=== PATIENT | male | born 1945 | race Caucasian/White ===

== ENCOUNTER 2017-11-23 11:52 | Inpatient (IN) ==
[2017-11-23] MEDS ORDERED: Aspirin Enteric Coated 81 MG Tablet PO SCH (12:15)
[2017-11-23] MEDS ORDERED: Nitroglycerin 0.4 MG TAB.SUBL SL PRN (12:15)
[2017-11-23] MEDS ORDERED: D5% in Water 1,000 ML IVC PRN (12:24)
[2017-11-23] MEDS ORDERED: Dextrose Gel 15 GM PO PRN ×2 (12:24)
[2017-11-23] MEDS ORDERED: *HR* Dextrose 50 % in Water (Syg) 50 ML SYRINGE IVP PRN (12:24)
[2017-11-23] MEDS: Insulin LISPRO 300 UNITS/3 ML VIAL SQ SCH ×3 (13:50→21:17)
[2017-11-23] MEDS: Albuterol 2.5 MG/3 ML NEBULIZER IH PRN ×5 (13:51→20:59)
[2017-11-23] MEDS ORDERED: Famotidine 20 MG TABLET PO SCH (21:00)
[2017-11-24] MEDS: Ascorbic Acid 500 MG TABLET PO SCH (05:20)
[2017-11-24] MEDS: Isosorbide MONOnitrate (24 HR) 60 MG TAB.ER.24H PO SCH (08:29)
[2017-11-24] MEDS: Spironolactone 25 MG TABLET PO SCH (08:31)
[2017-11-24] MEDS: Insulin LISPRO 300 UNITS/3 ML VIAL SQ SCH ×4 (08:39→21:38)
[2017-11-24] MEDS ORDERED: amLODIPine 5 MG TABLET PO SCH (09:00)
[2017-11-24] MEDS ORDERED: Furosemide 20 MG TABLET PO SCH (09:00)
[2017-11-24] MEDS: Tiotropium 18 MCG inhalation IH SCH (10:39)
[2017-11-24] MEDS: Albuterol 2.5 MG/3 ML NEBULIZER IH PRN (10:49)
--- NOTE | 2017-11-24 14:26 | Internal Med Progress Note ---
Date of Encounter: 11/24/17 Time of Encounter: 14:15 - Assessment and plan (1) Elevated brain natriuretic peptide (BNP) level Current Visit: No Status: Acute Assessment and plan: We will change from Lasix to Bumex. Continue Coreg and Cozaar and Imdur. (2) CKD (chronic kidney disease) stage 3, GFR 30-59 ml/min Current Visit: No Status: Chronic Assessment and plan: Monitor renal indices periodically. (3) Anemia Current Visit: No Status: Chronic Assessment and plan: Continue ferrous sulfate with vitamin C. We will discontinue H2 blockers and PPI. Qualifiers: Anemia type: unspecified type Qualified Code(s): D64.9 - Anemia, unspecified - Subjective Interval history: He was hospitalized in acute care November 19- after presenting with influenza A. He completed a course of Tamiflu. Lasix and Aldactone doses were reduced. He was started on Imdur. Cozaar and Coreg were continued. He had therapy intervention and progressed satisfactorily but it was felt that he would benefit from swing bed stay for ongoing therapy prior to independent living at home. He has no complaints today. - Constitutional Vitals: Temp Pulse Resp BP Pulse Ox 98.1 F 73 18 176/64 93 11/23/17 18:30 11/23/17 18:30 11/24/17 10:39 11/23/17 18:30 11/24/17 10:39 Exam: He is sitting in a chair resting comfortably. Affect is bright and cheerful. Extremities show 1-2+ edema of the lower anterior shins bilaterally. His speech is appropriate and there is no confusion. He does report occasional visual hallucinations. I reviewed his medications and lab results. Consult Discharge Plan - Plan Referrals: Leo Marcelo DO [Primary Care Provider] - 1 week
[2017-11-24] MEDS: Bumetanide 1 MG TABLET PO SCH (16:45)
[2017-11-24] MEDS: INSULIN REGULAR HUMAN 1 UNIT SQ SCH (18:23)
[2017-11-24] MEDS: INSULIN PUMP SQ SCH (18:23)
[2017-11-24] MEDS: *HR* OxyCODONE Immed Rel 5 MG TABLET PO PRN (21:35)
[2017-11-25] MEDS: *HR* OxyCODONE Immed Rel 5 MG TABLET PO PRN (03:20)
[2017-11-25] MEDS: Ascorbic Acid 500 MG TABLET PO SCH (06:23)
[2017-11-25] MEDS: Spironolactone 25 MG TABLET PO SCH (10:03)
[2017-11-25] MEDS: Isosorbide MONOnitrate (24 HR) 60 MG TAB.ER.24H PO SCH (10:04)
[2017-11-25] MEDS: Insulin LISPRO 300 UNITS/3 ML VIAL SQ SCH ×4 (10:04→21:29)
[2017-11-25] MEDS: Bumetanide 1 MG TABLET PO SCH (10:04)
[2017-11-25] MEDS: Tiotropium 18 MCG inhalation IH SCH (11:52)
[2017-11-25] MEDS: INSULIN REGULAR HUMAN 1 UNIT SQ SCH (15:15)
[2017-11-25] MEDS: INSULIN PUMP SQ SCH (15:15)
[2017-11-26] MEDS: Ascorbic Acid 500 MG TABLET PO SCH (06:25)
[2017-11-26] MEDS: Insulin LISPRO 300 UNITS/3 ML VIAL SQ SCH ×4 (07:50→21:54)
[2017-11-26] MEDS: Albuterol 2.5 MG/3 ML NEBULIZER IH PRN ×3 (08:51→22:24)
[2017-11-26] MEDS: Tiotropium 18 MCG inhalation IH SCH (08:54)
[2017-11-26] MEDS: Isosorbide MONOnitrate (24 HR) 60 MG TAB.ER.24H PO SCH (09:13)
[2017-11-26] MEDS: Spironolactone 25 MG TABLET PO SCH (09:13)
[2017-11-26] MEDS: Bumetanide 1 MG TABLET PO SCH (09:13)
[2017-11-26] MEDS: INSULIN PUMP SQ SCH (09:15)
[2017-11-26] MEDS: INSULIN REGULAR HUMAN 1 UNIT SQ SCH (09:15)
[2017-11-27] MEDS: Ascorbic Acid 500 MG TABLET PO SCH (06:49)
[2017-11-27] MEDS: Insulin LISPRO 300 UNITS/3 ML VIAL SQ SCH ×4 (07:20→20:19)
[2017-11-27] MEDS: Albuterol 2.5 MG/3 ML NEBULIZER IH PRN ×2 (09:00→14:45)
[2017-11-27] MEDS: Tiotropium 18 MCG inhalation IH SCH (09:04)
[2017-11-27] MEDS: Isosorbide MONOnitrate (24 HR) 30 MG TAB.ER.24H PO SCH (10:29)
[2017-11-27] MEDS: INSULIN PUMP SQ SCH (10:30)
[2017-11-27] MEDS: INSULIN REGULAR HUMAN 1 UNIT SQ SCH (10:30)
[2017-11-27] MEDS: Spironolactone 25 MG TABLET PO SCH (10:32)
[2017-11-27] MEDS: Bumetanide 1 MG TABLET PO SCH (10:33)
--- NOTE | 2017-11-27 17:16 | Internal Med Progress Note ---
Date of Encounter: 11/27/17 Time of Encounter: 17:08 - Assessment and plan (1) Elevated brain natriuretic peptide (BNP) level Current Visit: No Status: Acute Assessment and plan: November 24. We will change from Lasix to Bumex. Continue Coreg and Cozaar and Imdur. November 27. Continue present regimen. (2) CKD (chronic kidney disease) stage 3, GFR 30-59 ml/min Current Visit: No Status: Chronic Assessment and plan: November 24. Monitor renal indices periodically. (3) Anemia Current Visit: No Status: Chronic Assessment and plan: November 24. Continue ferrous sulfate with vitamin C. We will discontinue H2 blockers and PPI. November 27. Recheck labs in a.m. Qualifiers: Anemia type: unspecified type Qualified Code(s): D64.9 - Anemia, unspecified - Subjective Interval history: November 24. He was hospitalized in acute care November 19- after presenting with influenza A. He completed a course of Tamiflu. Lasix and Aldactone doses were reduced. He was started on Imdur. Cozaar and Coreg were continued. He had therapy intervention and progressed satisfactorily but it was felt that he would benefit from swing bed stay for ongoing therapy prior to independent living at home. He has no complaints today. November 27. He has no new complaints and states he feels better. - Constitutional Vitals: Temp Pulse Resp BP Pulse Ox 99.3 F 67 16 121/82 95 11/27/17 16:09 11/27/17 16:09 11/27/17 16:09 11/27/17 16:09 11/27/17 16:09 Exam: He is sitting on the side of bed resting comfortably. He denies any further hallucinations. Extremities show trace to 1+ edema in the lower anterior shins and dorsum of feet bilaterally. His affect is bright and cheerful. He does not appear dyspneic. He is wearing oxygen by nasal cannula. Reviewed his vital signs and medications. Consult Discharge Plan - Plan Referrals: Leo Marcelo DO [Primary Care Provider] - 1 week
[2017-11-28] MEDS: Isosorbide MONOnitrate (24 HR) 60 MG TAB.ER.24H PO SCH (04:35)
[2017-11-28 05:33] LABS: Basophils % 0.2 %; Eosinophils # 0.1 K/mcL (0.0-0.6); Eosinophils % 0.8 %; Hematocrit 27.9 % (37.5-50.1); Hemoglobin 9.2 g/dL (12.9-16.9); Immature Granulocytes % 2.5 % (0-4); Lymphocytes % 7.2 %; Mean Corpuscular Hemoglobin 28.8 pg (28.0-33.3); Mean Corpuscular Volume 87.2 fL (83.0-100.0); Mean Platelet Volume 10.2 fL (9.4-12.4); Monocytes # 0.9 K/mcL (0.0-1.3); Platelet Count 291 K/mcL (140-400); Red Cell Distribution Width 13.2 % (11.5-14.5); Segmented Neutrophils % 82.3 %
[2017-11-28 05:53] LABS: Calcium 9.3 mg/dL (8.6-10.3); Magnesium 1.6 mg/dL (1.6-2.6); Potassium 4.5 mEq/L (3.5-5.1)
[2017-11-28] MEDS: Ascorbic Acid 500 MG TABLET PO SCH (06:33)
[2017-11-28] MEDS: Insulin LISPRO 300 UNITS/3 ML VIAL SQ SCH ×4 (07:49→20:42)
[2017-11-28] MEDS: Bumetanide 1 MG TABLET PO SCH (07:50)
[2017-11-28] MEDS: Spironolactone 25 MG TABLET PO SCH (07:50)
[2017-11-28] MEDS: Isosorbide MONOnitrate (24 HR) 30 MG TAB.ER.24H PO SCH (07:51)
[2017-11-28] MEDS: Tiotropium 18 MCG inhalation IH SCH (10:35)
[2017-11-28] MEDS: INSULIN REGULAR HUMAN 1 UNIT SQ SCH (12:10)
[2017-11-28] MEDS: INSULIN PUMP SQ SCH (12:10)
[2017-11-28] MEDS: Albuterol 2.5 MG/3 ML NEBULIZER IH PRN (19:34)
[2017-11-29] MEDS: Ascorbic Acid 500 MG TABLET PO SCH (05:35)
[2017-11-29] MEDS: Insulin LISPRO 300 UNITS/3 ML VIAL SQ SCH ×4 (07:28→19:59)
[2017-11-29] MEDS: Bumetanide 1 MG TABLET PO SCH (10:07)
[2017-11-29] MEDS: Isosorbide MONOnitrate (24 HR) 30 MG TAB.ER.24H PO SCH (10:07)
[2017-11-29] MEDS: INSULIN PUMP SQ SCH (10:08)
[2017-11-29] MEDS: INSULIN REGULAR HUMAN 1 UNIT SQ SCH (10:08)
[2017-11-29] MEDS: Spironolactone 25 MG TABLET PO SCH (10:08)
[2017-11-29] MEDS: Tiotropium 18 MCG inhalation IH SCH (11:29)
[2017-11-30] MEDS: Ascorbic Acid 500 MG TABLET PO SCH (06:20)
[2017-11-30 07:08] VITALS: BP 117/58
[2017-11-30] MEDS: Bumetanide 1 MG TABLET PO SCH (07:52)
[2017-11-30] MEDS: Spironolactone 25 MG TABLET PO SCH (07:52)
[2017-11-30] MEDS: Isosorbide MONOnitrate (24 HR) 30 MG TAB.ER.24H PO SCH (07:52)
[2017-11-30] MEDS: Insulin LISPRO 300 UNITS/3 ML VIAL SQ SCH ×2 (07:53→11:44)
[2017-11-30] MEDS: Tiotropium 18 MCG inhalation IH SCH (10:25)
--- NOTE | 2017-11-30 11:17 | Discharge Summary ---
Date of Encounter: 11/30/17 Time of Encounter: 11:10 - Discharge Diagnosis (1) Elevated brain natriuretic peptide (BNP) level Priority: Primary Status: Acute (2) CKD (chronic kidney disease) stage 3, GFR 30-59 ml/min Priority: Secondary Status: Chronic (3) Anemia Priority: Secondary Status: Chronic Qualifiers: Anemia type: unspecified type Qualified Code(s): D64.9 - Anemia, unspecified Hospital course: Mr. Torres is a 72 year old male who was hospitalized in acute care November 19 - after presenting with influenza A. He completed a course of Tamiflu. Lasix and Aldactone doses were reduced. He was started on Imdur. Cozaar and Coreg were continued. He had therapy intervention and progressed satisfactorily but it was felt that he would benefit from swing bed stay for ongoing therapy prior to independent living at home. He progressed satisfactorily in swing bed with physical therapy and occupational therapy interventions. Medications were adjusted and his breathing improved. He will continue with ferrous sulfate and vitamin C for anemia. H2 blockers and PPI were discontinued to improve absorption of the ferrous sulfate. He had no new complaints and on November 30 was stable for discharge home. He will follow with his PCP Dr. Leo Marcelo within 1 week. Room air oximetry will be checked on a 6 minute walk prior to discharge. - Time Spent with Patient Total time spent providing and/or coordinating discharge services: - Discharge Medications Prescriptions: Ascorbic Acid [Vitamin C] 500 mg PO DAILY #30 tablet Bumetanide [Bumex] 1 mg PO DAILY #30 tablet Doxazosin [Cardura] 2 mg PO HS #60 tablet Ferrous Sulfate 325 mg PO DAILY 30 Days #30 tablet Home Medications: Atorvastatin [Lipitor] 40 mg PO HS 06/11/15 [History] Calcitriol [Rocaltrol] 0.5 mcg PO DAILY 06/11/15 [History] Carvedilol [Coreg] 25 mg PO BID 06/11/15 [History] Clopidogrel [Plavix] 75 mg PO DAILY 06/11/15 [History] Insulin Regular Human [Humulin R] 1 unit SQ DAILY 06/11/15 [History] Nitroglycerin 0.4 mg SL Q5MIN 06/11/15 [History] Paricalcitol [Zemplar] 1 mcg PO DAILY 06/11/15 [History] Sertraline [Zoloft] 200 mg PO DAILY 06/11/15 [History] Isosorbide MONOnitrate (24 HR) [Imdur] 60 mg PO DAILY 08/11/16 [History] Losartan Potassium [Cozaar] 100 mg PO DAILY 08/11/16 [History] Oxycodone HCl 5 mg PO Q6H PRN 08/11/16 [History] Tiotropium [place] [Spiriva Respimat] 1 puff IH BID 08/11/16 [History] Aspirin Enteric Coated [Aspirin EC] 81 mg PO Q48H #0 11/23/17 [Rx] Spironolactone [Aldactone] 12.5 mg PO DAILY tablet 11/23/17 [Rx] Ascorbic Acid [Vitamin C] 500 mg PO DAILY #30 tablet 11/30/17 [Rx] Bumetanide [Bumex] 1 mg PO DAILY #30 tablet 11/30/17 [Rx] Doxazosin [Cardura] 2 mg PO HS #60 tablet 11/30/17 [Rx] Ferrous Sulfate 325 mg PO DAILY 30 Days #30 tablet 11/30/17 [Rx] Allergies/Adverse Reactions: 3 Allergy/AdvReac Type Severity Reaction Status Date / Time No Known Allergies Allergy Verified 11/16/17 10:32 Date of admission: 11/23/17 12:01 Primary care physician: Leo Marcelo DO Consults: 11/23/17 12:26 OT [Consult to Occupational Therapy] [CONS] Routine Comment: Evaluate, develop and implement POC Reason for Consult: Evaluate, develop and implement POC PT [Consult to Physical Therapy] [CONS] Routine Comment: Evaluate, develop and implement POC Reason for Consult: Evaluate, develop and implement POC 11/23/17 12:29 Consult to Mechanical Research Engineer [CONS] Routine Reason for SW Consult: Discharge planning - Constitutional Vitals: Temp Pulse Resp BP Pulse Ox 98.2 F 69 20 117/58 93 11/30/17 07:06 11/30/17 07:06 11/30/17 07:06 11/30/17 07:06 11/30/17 07:06 - Patient Status Disposition: Home Health Service Functional capacity at discharge: uses cane/walker Overall status at discharge: patient is progressing back to baseline - Discharge Instructions Follow Up With: Leo Marcelo DO [Primary Care Provider] - 1 week - Diet and Activity Activity: resume usual activities as tolerated Diet: advance to your usual diet
--- NOTE | 2017-11-30 11:31 | Physician Discharge Referral ---
Home Health/Hosp Referral Info Transfer to: Home Health Attending Provider: [place] Provider in Charge Post Discharge: PCP (Leo Marcelo DO) - Diagnosis (1) Elevated brain natriuretic peptide (BNP) level Priority: Primary Status: Acute (2) CKD (chronic kidney disease) stage 3, GFR 30-59 ml/min Priority: Secondary Status: Chronic (3) Anemia Priority: Secondary Status: Chronic - Respiratory Orders Smoking Cessation: Smoking cessation has been advised. For more information, call the [place] Tobacco Quit Line at 1-156-LNEC-NOW. - Diet/Nutrition Diet/Nutrition Orders: No Concentrated Sweets - Activity Activity Orders: Walker - Services Needed Following services are medically necessary services: Nursing, Home Health Aide, Physical Therapy, Occupational Therapy - Transfer Medications Prescriptions: Ascorbic Acid [Vitamin C] 500 mg PO DAILY #30 tablet Bumetanide [Bumex] 1 mg PO DAILY #30 tablet Doxazosin [Cardura] 2 mg PO HS #60 tablet Ferrous Sulfate 325 mg PO DAILY 30 Days #30 tablet Home Medications: Atorvastatin [Lipitor] 40 mg PO HS 06/11/15 [History] Calcitriol [Rocaltrol] 0.5 mcg PO DAILY 06/11/15 [History] Carvedilol [Coreg] 25 mg PO BID 06/11/15 [History] Clopidogrel [Plavix] 75 mg PO DAILY 06/11/15 [History] Insulin Regular Human [Humulin R] 1 unit SQ DAILY 06/11/15 [History] Nitroglycerin 0.4 mg SL Q5MIN 06/11/15 [History] Paricalcitol [Zemplar] 1 mcg PO DAILY 06/11/15 [History] Sertraline [Zoloft] 200 mg PO DAILY 06/11/15 [History] Isosorbide MONOnitrate (24 HR) [Imdur] 60 mg PO DAILY 08/11/16 [History] Losartan Potassium [Cozaar] 100 mg PO DAILY 08/11/16 [History] Oxycodone HCl 5 mg PO Q6H PRN 08/11/16 [History] Tiotropium [place] [Spiriva Respimat] 1 puff IH BID 08/11/16 [History] Aspirin Enteric Coated [Aspirin EC] 81 mg PO Q48H #0 11/23/17 [Rx] Spironolactone [Aldactone] 12.5 mg PO DAILY tablet 11/23/17 [Rx] Ascorbic Acid [Vitamin C] 500 mg PO DAILY #30 tablet 11/30/17 [Rx] Bumetanide [Bumex] 1 mg PO DAILY #30 tablet 11/30/17 [Rx] Doxazosin [Cardura] 2 mg PO HS #60 tablet 11/30/17 [Rx] Ferrous Sulfate 325 mg PO DAILY 30 Days #30 tablet 11/30/17 [Rx] Allergies/Adverse Reactions: 3 Allergy/AdvReac Type Severity Reaction Status Date / Time No Known Allergies Allergy Verified 11/16/17 10:32 Certification: Further, I certify that my clinical findings support that this patient is homebound (i.e. absences from home require considerable and taxing effort and are for medical reasons or mosque services or infrequently or short duration when for other reasons) because: Homebound Reason: Leaving home requires considerable and taxing effort due to condition (Anemia, dyspnea on exertion) Attestation: My signature below is to certify that this patient is under my care and that I, or nurse practitioner, or a physician's sales and marketing assistant working with me, has a face-to -face encounter with this patient.
[2017-11-30] MEDS: INSULIN PUMP SQ SCH (11:43)
[2017-11-30] MEDS: INSULIN REGULAR HUMAN 1 UNIT SQ SCH (11:43)
== END 2017-11-30 12:55 | disposition home health service (06) | DRG 945 ==
LOC: INPPIK 12:01
PROVIDERS: ADMIT Internal Medicine; ATTEND Internal Medicine

== ENCOUNTER 2018-03-19 20:22 | Inpatient (IN) ==
[2018-03-19] MEDS ORDERED: Tiotropium 18 MCG inhalation IH SCH (23:00)
[2018-03-19] MEDS ORDERED: Nitroglycerin 0.4 MG TAB.SUBL SL PRN (23:03)
[2018-03-19] MEDS ORDERED: *HR* OxyCODONE/APAP 10/325 TABLET PO PRN (23:12)
[2018-03-19] MEDS ORDERED: Insulin DETEMIR 100 UNIT/ML per UNIT SQ ONE (23:15)
[2018-03-19] MEDS ORDERED: *HR* Dextrose 50 % in Water (Syg) 50 ML SYRINGE IVP PRN (23:57)
[2018-03-19] MEDS ORDERED: D5% in Water 1,000 ML IVC PRN (23:57)
[2018-03-19] MEDS ORDERED: Dextrose Gel 15 GM/37.5 ML TUBE PO PRN ×2 (23:57)
[2018-03-20] MEDS: Melatonin 3 MG TABLET PO SCH ×2 (00:40→20:36)
[2018-03-20] MEDS: Insulin LISPRO 300 UNITS/3 ML VIAL SQ SCH ×8 (00:40→20:38)
[2018-03-20] MEDS: Budesonide/Formoterol 80/4.5 MDI IH SCH ×3 (00:49→21:00)
[2018-03-20 06:26] LABS: Basophils % 0.5 %; Eosinophils # 0.2 K/mcL (0.0-0.6); Eosinophils % 3.2 %; Hematocrit 32.3 % (37.5-50.1); Immature Granulocytes % 0.5 % (0-4); Mean Corpuscular HGB Conc 34.1 g/dL (31.6-35.5); Mean Corpuscular Hemoglobin 28.6 pg (28.0-33.3); Mean Corpuscular Volume 84.1 fL (83.0-100.0); Monocytes # 0.4 K/mcL (0.0-1.3); Monocytes % 6.6 %; Platelet Count 125 K/mcL (140-400); Red Blood Count 3.84 M/mcL (4.19-5.50); Red Cell Distribution Width 14.1 % (11.5-14.5); Segmented Neutrophils % 36.2 %
[2018-03-20] MEDS: Ascorbic Acid 500 MG TABLET PO SCH (06:33)
[2018-03-20] MEDS: Levothyroxine 25 MCG TABLET PO SCH (06:33)
[2018-03-20] MEDS: Isosorbide MONOnitrate (24 HR) 60 MG TAB.ER.24H PO SCH (08:05)
[2018-03-20] MEDS: Bumetanide 1 MG TABLET PO SCH (08:06)
[2018-03-20] MEDS: Cholecalciferol (D-3) 1,000 UNIT TABLET PO SCH (08:06)
[2018-03-20] MEDS: Cyanocobalamin (B-12) 1,000 MCG TABLET PO SCH ×2 (08:06→20:36)
[2018-03-20] MEDS ORDERED: Aspirin 81 MG TAB.CHEW PO SCH (09:00)
[2018-03-20] MEDS ORDERED: Loratadine 10 MG TABLET PO SCH (09:00)
[2018-03-20] MEDS: Insulin DETEMIR 100 UNIT/ML X5UNITS SQ SCH ×2 (09:19→20:37)
[2018-03-20] MEDS: Tiotropium 18 MCG inhalation IH SCH (16:30)
--- NOTE | 2018-03-20 17:49 | Internal Med History&Physical ---
Date of Encounter: 03/20/18 Time of Encounter: 17:20 Assessment and Plan (1) Anemia Current visit: No Status: Chronic Anemia testing 03/14/2018 showed iron 26, transferrin saturation 8%, transferrin 227, ferritin 264, B12 653, and folate 17.1. Will continue ferrous sulfate with vitamin C. Qualifiers: Anemia type: unspecified type Qualified Code(s): D64.9 - Anemia, unspecified (2) CKD (chronic kidney disease) stage 3, GFR 30-59 ml/min Current visit: No Status: Chronic Will monitor renal indices. (3) Diabetes mellitus Current visit: No Status: Acute Hemoglobin A1c was 6.4% on 06/09/2017. Will recheck with next blood draw. Continue Levemir and Accu-Cheks with SSI. Qualifiers: Diabetes mellitus type: type 2 Diabetes mellitus intermediate accountant insulin use: with usp use Diabetes mellitus complication status: with kidney complications Diabetes mellitus complication detail: with chronic kidney disease Chronic kidney disease stage: stage 3 (moderate) Qualified Code(s): E11.22 - Type 2 diabetes mellitus with diabetic chronic kidney disease; N18.3 - Chronic kidney disease, stage 3 (moderate); Z79.4 - MCC (current) use of insulin (4) Hypothyroidism Current visit: No Status: Acute TSH was normal at 3.148 on 03/15/2018. Continue present dose Synthroid Qualifiers: Hypothyroidism type: unspecified Qualified Code(s): E03.9 - Hypothyroidism , unspecified (5) LOGAN (acute kidney injury) Current visit: No Status: Acute We will monitor renal indices. Internal Medicine - H&P: HPI Chief complaint: LOGAN, CKD, sepsis Admitted From: Hospital to Hospital Transfer Plans for Post Hospital Care: Home History of present illness: Mr. Torres is a 73 year old male who was hospitalized at [facility] March 14- after falling multiple times at home. He had no LOC but lost his balance and had weakness. He was found to have sepsis and AKA high. He was treated and improved and discharged [facility] swing bed for ongoing care needs. Past Med Surg Social Fam HX - Past Medical History Medical history: COPD, diabetes, hyperlipidemia, hypertension, myocardial infarction, renal disease, thyroid disease Additional medical history: sleep apnea, chronic back pain, AAA Psychiatric history: depression - Past Surgical History Surgical History: angioplasty/stent, cancer surgery, carotid endarterectomy, cholecystectomy, prostatectomy Additional surgical history: KIDNEY REMOVAL - Social History Smoking Status: Former smoker Smokeless Tobacco Status: No Alcohol use: none Drug use: none - Family History Mother Living Status: Hx Family Cardiac Disorders: Yes Hx Family Respiratory Disorders: Yes Hx Family Cancer: Yes Internal Medicine - H&P: Meds Carvedilol [Coreg] 25 mg PO BID 06/11/15 [History] Isosorbide MONOnitrate (24 HR) [Imdur] 60 mg PO DAILY 08/11/16 [History] Tiotropium [place] [Spiriva Respimat] 1 puff IH BID 08/11/16 [History] Ascorbic Acid [Vitamin C] 500 mg PO DAILY #30 tablet 11/30/17 [Rx] Ferrous Sulfate 325 mg PO DAILY 30 Days #30 tablet 11/30/17 [Rx] Albuterol Sulfate [Albuterol Inhaler] 2 puff IH Q4HR 03/14/18 [History] Arginine HCl [l-Arginine] 1,000 mg PO BID 03/14/18 [History] Aspirin Enteric Coated [Aspirin EC] 81 mg PO DAILY 03/14/18 [History] Atorvastatin [Lipitor] 40 mg PO HS 03/14/18 [History] Budesonide/Formoterol 80/4.5 [Symbicort 80/4.5] 2 gm IH BIDR 03/14/18 [History] Bumetanide [Bumex] 0.5 mg PO DAILY 03/14/18 [History] Cholecalciferol (D-3) [Vitamin D] 1,000 unit PO DAILY 03/14/18 [History] Cyanocobalamin (B-12) [Vitamin B12] 1,000 mcg PO BID 03/14/18 [History] Doxazosin [Cardura] 1 mg PO HS 03/14/18 [History] Insulin Pump Cartridge [Insulin Pump] 1 device SQ AD 03/14/18 [History] Levothyroxine [Synthroid] 25 mcg PO 0630 03/14/18 [History] Lidocaine Patch [Lidoderm 5% patch] 1 each TP DAILY 03/14/18 [History] Loratadine [Allergy Relief] 10 mg PO DAILY 03/14/18 [History] Melatonin 10 mg PO HS 03/14/18 [History] Nitroglycerin [Nitrostat] 0.4 mg SL Q5MIN PRN 03/14/18 [History] Paricalcitol [Zemplar] 1 mcg PO DAILY 03/14/18 [History] Sertraline [Zoloft] 200 mg PO DAILY 03/14/18 [History] Amoxicillin/Clavulanate [Augmentin] 875 mg PO BIDWM #10 tablet 03/19/18 [Rx] Insulin DETEMIR [Levemir] 20 unit SQ BID [id number] 03/19/18 [Rx] Insulin LISPRO [HumaLOG] 0 units SQ HS vial 03/19/18 [Rx] Insulin LISPRO [HumaLOG] 0 units SQ TIDAC vial 03/19/18 [Rx] Insulin LISPRO [HumaLOG] 5 units SQ TIDWM vial 03/19/18 [Rx] Losartan Potassium [Cozaar] 100 mg PO DAILY #0 03/19/18 [Rx] OxyCODONE/APAP 10/325 [Percocet 10/325 MG] 1 tab PO Q6HR PRN 3 Days #12 tablet 03/19/18 [Rx] 3 Allergy/AdvReac Type Severity Reaction Status Date / Time No Known Allergies Allergy Verified 03/14/18 19:48 All Systems PM: A 10-system review of systems was performed and is negative for pertinent findings except as documented above in the HPI. Review of systems: Review of systems from his November 2017 [facility] hospitalization were reviewed and revised as below. Gen.: His weight has been stable at approximately 147 kg since November 2017 [facility] hospitalization. Cardiovascular: Has history of hypertension. He has known left internal carotid stenosis with carotid Doppler study 06/29/2017 showing 60-79% left ICA stenosis. This was treated nonsurgically. He has an infrarenal aortic aneurysm measuring 4.5 x 4.1 cm. A Regadenoson stress test 02/17/2016 showed no perfusion imaging and nondiagnostic EKG changes indicating ischemia. An echocardiogram 03/15/2018 showed normal LV systolic function with overall suboptimal visualization. There was mild LV diastolic dysfunction reported although E/A ratio was 1.2. No significant valvular dysfunction was noted. There was increased thickness of the interventricular septum and posterior wall at 1.50 cm each. He denies DVT or pulmonary embolus. Respiratory: As per history of present illness GI: He has had cholecystectomy. He has GERD. He denies disorders of his liver or exocrine pancreas : He had suprapubic prostatectomy with hernia repair several years ago. He has chronic kidney disease stage III and follows with a [place] neck band operator. He has had left nephrectomy in the past for renal cell cancer. Neurologic: He denies large decision strokes or seizures. Endocrine: He was diagnosed with DM 2 approximately 1977. He has hyperlipidemia but denies thyroid disease Hematology/oncology: He has had prostate CA and left renal cell cancer as per above. He has been treated surgically and he is presumed cancer free. He has anemia with anemia testing 03/14/2018 showing iron 26, transferrin saturation 8% , transferrin 227, ferritin 264, B12 653, and folate 17.1. Psychiatric: He has anxiety and depression. He denies other mental health issues. Musculoskeletal: He has DJD. He had discectomy with spinal fusion surgery. - Constitutional Vitals: Temp Pulse Resp BP Pulse Ox 97.5 F L 67 12 146/56 96 03/20/18 15:34 03/20/18 15:34 03/20/18 16:30 03/20/18 15:34 03/20/18 16:30 Exam: Gen.: He is a well-developed obese male sitting in a chair at bedside who appears in no severe distress HEENT: Head is atraumatic and normocephalic. Eyes: EOMI. There is no scleral icterus. Mouth: Mucosa is moist. Neck: Supple and nontender. There is no thyromegaly or adenopathy noted. Heart: Regular without murmurs gallops or ectopics Lungs: No wheezes or crackles are heard. Abdomen: Soft and nontender. Exam is limited because he is in the seated position. Extremities: He has 1-2+ edema of the lower anterior shins bilaterally. He is wearing shoes and socks which I did not remove. He has minimal DJD changes of his hands. Neurologic: Mental status: He is talkative and a good historian. Cranial nerves : Smile is symmetric. Forehead wrinkles bilaterally. Tongue protrudes midline. EOMI. Motor: There is no pronator drift. Cerebellar: Finger to nose is intact bilaterally. Skin: Warm and dry Internal Med - H&P Results - Labs CBC & Chem 7: 03/20/18 05:55 Labs: Short CBC 06/11/18 Range/Units 05:55 WBC 5.6 (4.3-11.1) K/mcL Hgb 11.0 L (12.9-16.9) g/dL Hct 32.3 L (37.5-50.1) % Plt Count 125 L (140-400) K/mcL Neutrophils # 2.0 (1.6-8.9) K/mcL
[2018-03-20] MEDS: Aspirin 81 MG TAB.CHEW PO SCH (20:36)
[2018-03-21] MEDS: Levothyroxine 25 MCG TABLET PO SCH (06:24)
[2018-03-21] MEDS: Ascorbic Acid 500 MG TABLET PO SCH (06:24)
[2018-03-21] MEDS: Insulin LISPRO 300 UNITS/3 ML VIAL SQ SCH ×7 (08:54→22:29)
[2018-03-21] MEDS: Bumetanide 1 MG TABLET PO SCH (08:55)
[2018-03-21] MEDS: Cholecalciferol (D-3) 1,000 UNIT TABLET PO SCH (08:55)
[2018-03-21] MEDS: Isosorbide MONOnitrate (24 HR) 60 MG TAB.ER.24H PO SCH (08:55)
[2018-03-21] MEDS: Cyanocobalamin (B-12) 1,000 MCG TABLET PO SCH ×2 (08:56→22:32)
[2018-03-21] MEDS: Insulin DETEMIR 100 UNIT/ML X5UNITS SQ SCH ×2 (08:56→22:32)
[2018-03-21] MEDS: Tiotropium 18 MCG inhalation IH SCH (11:46)
[2018-03-21] MEDS: Budesonide/Formoterol 80/4.5 MDI IH SCH ×2 (11:46→21:50)
--- NOTE | 2018-03-21 15:50 | Internal Med Progress Note ---
Date of Encounter: 03/21/18 Time of Encounter: 15:40 - Assessment and plan (1) Anemia Current Visit: No Status: Chronic Assessment and plan: March 21. Anemia testing 03/14/2018 showed iron 26, transferrin saturation 8%, transferrin 227, ferritin 264, B12 653, and folate 17.1. Continue ferrous sulfate with vitamin C. Qualifiers: Anemia type: unspecified type Qualified Code(s): D64.9 - Anemia, unspecified (2) CKD (chronic kidney disease) stage 3, GFR 30-59 ml/min Current Visit: No Status: Chronic Assessment and plan: March 21. Monitor renal indices (3) Diabetes mellitus Current Visit: No Status: Acute Assessment and plan: March 21. Hemoglobin A1c was 6.4% on 06/09/2017. Will recheck with next blood draw. Continue Levemir and Accu-Cheks with SSI Qualifiers: Diabetes mellitus type: type 2 Diabetes mellitus snf insulin use: with snf use Diabetes mellitus complication status: with kidney complications Diabetes mellitus complication detail: with chronic kidney disease Chronic kidney disease stage: stage 3 (moderate) Qualified Code(s): E11.22 - Type 2 diabetes mellitus with diabetic chronic kidney disease; N18.3 - Chronic kidney disease, stage 3 (moderate); Z79.4 - exterminator (current) use of insulin (4) Hypothyroidism Current Visit: No Status: Acute Assessment and plan: March 21. Continue Synthroid Qualifiers: Hypothyroidism type: unspecified Qualified Code(s): E03.9 - Hypothyroidism , unspecified (5) LOGAN (acute kidney injury) Current Visit: No Status: Acute Assessment and plan: March 21. Monitor renal indices. - Subjective Interval history: March 21. He has no new complaints and feels well. - Constitutional Vitals: Temp Pulse Resp BP Pulse Ox 98.1 F 69 16 174/70 95 03/21/18 06:00 03/21/18 06:00 03/21/18 11:46 03/21/18 06:00 03/21/18 11:46 Exam: He is resting comfortably in bed and appears in no acute distress. His affect is bright and cheerful. I reviewed his medications and lab results. Internal Medicine: Result - Labs CBC & Chem 7: 03/20/18 05:55 Consult Discharge Plan - Plan Referrals: Leo Marcelo DO [Primary Care Provider] - 1 week
[2018-03-21] MEDS: Aspirin 81 MG TAB.CHEW PO SCH (22:32)
[2018-03-21] MEDS: Melatonin 3 MG TABLET PO SCH (22:32)
[2018-03-22 06:15] LABS: Basophils % 0.5 %; Eosinophils # 0.2 K/mcL (0.0-0.6); Hematocrit 35.4 % (37.5-50.1); Hemoglobin 11.7 g/dL (12.9-16.9); Immature Granulocytes % 2.3 % (0-4); Lymphocytes # 2.7 K/mcL (0.6-4.6); Lymphocytes % 42.1 %; Mean Corpuscular HGB Conc 33.1 g/dL (31.6-35.5); Mean Corpuscular Volume 84.7 fL (83.0-100.0); Mean Platelet Volume 10.1 fL (9.4-12.4); Monocytes # 0.6 K/mcL (0.0-1.3); Monocytes % 8.6 %; Neutrophils # 2.8 K/mcL (1.6-8.9); Platelet Count 180 K/mcL (140-400); Red Blood Count 4.18 M/mcL (4.19-5.50); Segmented Neutrophils % 43.5 %
[2018-03-22] MEDS: Ascorbic Acid 500 MG TABLET PO SCH (06:15)
[2018-03-22] MEDS: Levothyroxine 25 MCG TABLET PO SCH (06:16)
[2018-03-22 07:15] LABS: BUN/Creatinine Ratio 20 (6-26); Blood Urea Nitrogen 27 mg/dL (8-23); Calcium 10.1 mg/dL (8.6-10.3); Carbon Dioxide 25 mEq/L (23-29); Chloride 105 mEq/L (98-107); Glucose 185 mg/dL (70-105); Osmolality,Calculated 294 (280-300); Potassium 4.3 mEq/L (3.5-5.1); Sodium 137 mEq/L (136-145); eGFR For African Americans > 60 (> 60); eGFR For Non-African Americans 51 (> 60)
[2018-03-22] MEDS: Insulin LISPRO 300 UNITS/3 ML VIAL SQ SCH ×7 (08:19→21:20)
[2018-03-22] MEDS: Cholecalciferol (D-3) 1,000 UNIT TABLET PO SCH (08:25)
[2018-03-22] MEDS: Cyanocobalamin (B-12) 1,000 MCG TABLET PO SCH ×2 (08:25→21:16)
[2018-03-22] MEDS: Bumetanide 1 MG TABLET PO SCH (08:26)
[2018-03-22] MEDS: Isosorbide MONOnitrate (24 HR) 60 MG TAB.ER.24H PO SCH (08:26)
[2018-03-22] MEDS: Insulin DETEMIR 100 UNIT/ML X5UNITS SQ SCH ×2 (09:15→21:19)
[2018-03-22 10:06] LABS: Estimated Average Glucose 154 mg/dl
[2018-03-22] MEDS: Budesonide/Formoterol 80/4.5 MDI IH SCH ×2 (11:03→21:52)
[2018-03-22] MEDS: Tiotropium 18 MCG inhalation IH SCH (11:05)
[2018-03-22] MEDS: Melatonin 3 MG TABLET PO SCH (21:16)
[2018-03-22] MEDS: Aspirin 81 MG TAB.CHEW PO SCH (21:17)
[2018-03-23] MEDS: Ascorbic Acid 500 MG TABLET PO SCH (06:36)
[2018-03-23] MEDS: Levothyroxine 25 MCG TABLET PO SCH (06:37)
[2018-03-23] MEDS: Insulin DETEMIR 100 UNIT/ML X5UNITS SQ SCH ×2 (09:21→20:59)
[2018-03-23] MEDS: Cholecalciferol (D-3) 1,000 UNIT TABLET PO SCH (09:25)
[2018-03-23] MEDS: Cyanocobalamin (B-12) 1,000 MCG TABLET PO SCH ×2 (09:25→20:58)
[2018-03-23] MEDS: Isosorbide MONOnitrate (24 HR) 60 MG TAB.ER.24H PO SCH (09:25)
[2018-03-23] MEDS: Bumetanide 1 MG TABLET PO SCH (09:25)
[2018-03-23] MEDS: Insulin LISPRO 300 UNITS/3 ML VIAL SQ SCH ×7 (09:39→20:58)
[2018-03-23] MEDS: Budesonide/Formoterol 80/4.5 MDI IH SCH ×2 (10:54→21:42)
[2018-03-23] MEDS: Tiotropium 18 MCG inhalation IH SCH (10:54)
[2018-03-23] MEDS: Melatonin 3 MG TABLET PO SCH (20:58)
[2018-03-23] MEDS: Aspirin 81 MG TAB.CHEW PO SCH (20:58)
[2018-03-24] MEDS: Ascorbic Acid 500 MG TABLET PO SCH (06:23)
[2018-03-24] MEDS: Levothyroxine 25 MCG TABLET PO SCH (06:23)
[2018-03-24] MEDS: Isosorbide MONOnitrate (24 HR) 60 MG TAB.ER.24H PO SCH (08:52)
[2018-03-24] MEDS: Bumetanide 1 MG TABLET PO SCH (08:52)
[2018-03-24] MEDS: Insulin LISPRO 300 UNITS/3 ML VIAL SQ SCH ×7 (08:53→21:30)
[2018-03-24] MEDS: Cyanocobalamin (B-12) 1,000 MCG TABLET PO SCH ×2 (08:53→21:21)
[2018-03-24] MEDS: Cholecalciferol (D-3) 1,000 UNIT TABLET PO SCH (08:53)
[2018-03-24] MEDS: Budesonide/Formoterol 80/4.5 MDI IH SCH ×2 (09:01→21:18)
[2018-03-24] MEDS: Tiotropium 18 MCG inhalation IH SCH (09:01)
[2018-03-24] MEDS: Insulin DETEMIR 100 UNIT/ML X5UNITS SQ SCH ×2 (10:33→21:34)
--- NOTE | 2018-03-24 17:12 | Internal Med Progress Note ---
Date of Encounter: 03/24/18 Time of Encounter: 17:05 - Assessment and plan (1) Anemia Current Visit: No Status: Chronic Assessment and plan: March 21. Anemia testing 03/14/2018 showed iron 26, transferrin saturation 8%, transferrin 227, ferritin 264, B12 653, and folate 17.1. Continue ferrous sulfate with vitamin C. March 24. Hemoglobin improved to 11.7 on 03/22/2018. Continue ferrous sulfate with vitamin C. Qualifiers: Anemia type: unspecified type Qualified Code(s): D64.9 - Anemia, unspecified (2) CKD (chronic kidney disease) stage 3, GFR 30-59 ml/min Current Visit: No Status: Chronic Assessment and plan: March 21. Monitor renal indices (3) Diabetes mellitus Current Visit: No Status: Acute Assessment and plan: March 21. Hemoglobin A1c was 6.4% on 06/09/2017. Will recheck with next blood draw. Continue Levemir and Accu-Cheks with SSI March 24. Hemoglobin A1c was 7.0% on 03/22/2018. Continue Levemir and Accu- Cheks with SSI. Qualifiers: Diabetes mellitus type: type 2 Diabetes mellitus termite control technician insulin use: with chcf use Diabetes mellitus complication status: with kidney complications Diabetes mellitus complication detail: with chronic kidney disease Chronic kidney disease stage: stage 3 (moderate) Qualified Code(s): E11.22 - Type 2 diabetes mellitus with diabetic chronic kidney disease; N18.3 - Chronic kidney disease, stage 3 (moderate); Z79.4 - termite renewal inspector (current) use of insulin (4) Hypothyroidism Current Visit: No Status: Acute Assessment and plan: March 21. Continue Synthroid Qualifiers: Hypothyroidism type: unspecified Qualified Code(s): E03.9 - Hypothyroidism , unspecified (5) LOGAN (acute kidney injury) Current Visit: No Status: Acute Assessment and plan: March 21. Monitor renal indices. March 24. Improved with BUN and creatinine 27 and 1.36 respectively. Continue present regimen. - Subjective Interval history: March 21. He has no new complaints and feels well. March 24. He has no new complaints and feels well. He is anticipating discharge home tomorrow. - Constitutional Vitals: Temp Pulse Resp BP Pulse Ox 97.6 F 66 18 174/78 95 03/24/18 07:36 03/24/18 07:36 03/24/18 07:36 03/24/18 07:36 03/24/18 09:01 Exam: He is sitting on the side of bed resting comfortably. His affect is bright and cheerful. I reviewed his medications and lab results. Internal Medicine: Result - Labs CBC & Chem 7: 03/22/18 05:50 03/22/18 05:50 - VTE Documentation of Mechanical Device: Graduated compression elastic hosiery Consult Discharge Plan - Plan Referrals: Leo Marcelo DO [Primary Care Provider] - 1 week
[2018-03-24] MEDS: Melatonin 3 MG TABLET PO SCH (21:21)
[2018-03-24] MEDS: Aspirin 81 MG TAB.CHEW PO SCH (21:22)
[2018-03-25] MEDS: Levothyroxine 25 MCG TABLET PO SCH (06:10)
[2018-03-25] MEDS: Ascorbic Acid 500 MG TABLET PO SCH (06:10)
[2018-03-25 06:17] VITALS: BP 159/71
--- NOTE | 2018-03-25 08:19 | Discharge Summary ---
Date of Encounter: 03/25/18 Time of Encounter: 08:10 - Discharge Diagnosis (1) LOGAN (acute kidney injury) Priority: Primary Status: Acute (2) Anemia Priority: Secondary Status: Chronic Qualifiers: Anemia type: unspecified type Qualified Code(s): D64.9 - Anemia, unspecified (3) CKD (chronic kidney disease) stage 3, GFR 30-59 ml/min Priority: Secondary Status: Chronic (4) Diabetes mellitus Priority: Secondary Status: Acute Qualifiers: Diabetes mellitus type: type 2 Diabetes mellitus utilization reviewer insulin use: with custodial use Diabetes mellitus complication status: with kidney complications Diabetes mellitus complication detail: with chronic kidney disease Chronic kidney disease stage: stage 3 (moderate) Qualified Code(s): E11.22 - Type 2 diabetes mellitus with diabetic chronic kidney disease; N18.3 - Chronic kidney disease, stage 3 (moderate); Z79.4 - halfway (current) use of insulin (5) Hypothyroidism Priority: Secondary Status: Acute Qualifiers: Hypothyroidism type: unspecified Qualified Code(s): E03.9 - Hypothyroidism , unspecified Hospital course: Mr. Torres is a 73 year old male who was hospitalized at [facility] March 14 after falling multiple times at home. He had no LOC but lost his balance and had weakness. He was found to have sepsis and LOGAN. He was treated and improved and discharged [facility] swing bed for ongoing care needs. Initial orders were written by the discharging physicians at [facility]. I saw him on March 20 and performed a swing bed history and physical. He continued antibiotics through his swing bed stay and remained afebrile. Antibiotics will be discontinued at discharge home today. Creatinine returned to 1.36 on 03/22/2018 which is probably his baseline. He had physical therapy and occupational therapy interventions and progressed well. On March 25 he was stable for discharge home. He will follow with his PCP Dr. Leo Marcelo within 1 week. He will have home health services ordered. - Time Spent with Patient Total time spent providing and/or coordinating discharge services: - Discharge Medications Home Medications: Carvedilol [Coreg] 25 mg PO BID 06/11/15 [History] Isosorbide MONOnitrate (24 HR) [Imdur] 60 mg PO DAILY 08/11/16 [History] Tiotropium [place] [Spiriva Respimat] 1 puff IH BID 08/11/16 [History] Ascorbic Acid [Vitamin C] 500 mg PO DAILY #30 tablet 11/30/17 [Rx] Ferrous Sulfate 325 mg PO DAILY 30 Days #30 tablet 11/30/17 [Rx] Albuterol Sulfate [Albuterol Inhaler] 2 puff IH Q4HR 03/14/18 [History] Arginine HCl [l-Arginine] 1,000 mg PO BID 03/14/18 [History] Aspirin Enteric Coated [Aspirin EC] 81 mg PO DAILY 03/14/18 [History] Atorvastatin [Lipitor] 40 mg PO HS 03/14/18 [History] Budesonide/Formoterol 80/4.5 [Symbicort 80/4.5] 2 gm IH BIDR 03/14/18 [History] Bumetanide [Bumex] 0.5 mg PO DAILY 03/14/18 [History] Cholecalciferol (D-3) [Vitamin D] 1,000 unit PO DAILY 03/14/18 [History] Cyanocobalamin (B-12) [Vitamin B12] 1,000 mcg PO BID 03/14/18 [History] Doxazosin [Cardura] 1 mg PO HS 03/14/18 [History] Insulin Pump Cartridge [Insulin Pump] 1 device SQ AD 03/14/18 [History] Levothyroxine [Synthroid] 25 mcg PO 0630 03/14/18 [History] Lidocaine Patch [Lidoderm 5% patch] 1 each TP DAILY 03/14/18 [History] Melatonin 10 mg PO HS 03/14/18 [History] Nitroglycerin [Nitrostat] 0.4 mg SL Q5MIN PRN 03/14/18 [History] Paricalcitol [Zemplar] 1 mcg PO DAILY 03/14/18 [History] Sertraline [Zoloft] 200 mg PO DAILY 03/14/18 [History] Insulin DETEMIR [Levemir] 20 unit SQ BID d1nasan 03/19/18 [Rx] Insulin LISPRO [HumaLOG] 0 units SQ HS vial 03/19/18 [Rx] Insulin LISPRO [HumaLOG] 0 units SQ TIDAC vial 03/19/18 [Rx] Insulin LISPRO [HumaLOG] 5 units SQ TIDWM vial 03/19/18 [Rx] Losartan Potassium [Cozaar] 100 mg PO DAILY #0 03/19/18 [Rx] OxyCODONE/APAP 10/325 [Percocet 10/325 MG] 1 tab PO Q6HR PRN 3 Days #12 tablet 03/19/18 [Rx] Loratadine [Allergy Relief] 10 mg PO DAILY PRN #0 03/25/18 [Rx] Allergies/Adverse Reactions: 3 Allergy/AdvReac Type Severity Reaction Status Date / Time No Known Allergies Allergy Verified 03/14/18 19:48 Date of admission: 03/19/18 21:12 Primary care physician: Leo Marcelo DO Consults: 03/19/18 22:52 Consult to Occupational Therapy [CONS] Routine Comment: TO PLAN, DEVELOP, IMPLEMENT PLAN OF CARE Reason for Consult: TO PLAN, DEVELOP, IMPLEMENT PLAN OF CARE Does patient have active BEDREST order?: No Is patient medically & hemodynamically stable?: Yes Consult to Physical Therapy [CONS] Routine Comment: TO PLAN, DEVELOP, IMPLEMENT PLAN OF CARE Reason for Consult: TO PLAN, DEVELOP, IMPLEMENT PLAN OF CARE Does patient have active BEDREST order?: No Is patient medically & hemodynamically stable?: Yes Consult to Professor Of Theater [CONS] Routine Reason for SW Consult: DISCHARGE PLANNING - Constitutional Vitals: Temp Pulse Resp BP Pulse Ox 97.8 F 67 17 159/71 97 03/25/18 06:17 03/25/18 06:17 03/25/18 06:17 03/25/18 06:17 03/25/18 06:17 - Patient Status Disposition: Home Health Service Overall status at discharge: patient is progressing back to baseline - Discharge Instructions Follow Up With: Leo Marcelo DO [Primary Care Provider] - 1 week - Diet and Activity Activity: as per physical therapy Diet: diabetic diet - VTE Documentation of Mechanical Device: Graduated compression elastic hosiery
--- NOTE | 2018-03-25 08:23 | Physician Discharge Referral ---
Home Health/Hosp Referral Info Transfer to: Home Health Attending Provider: [place] Provider in Charge Post Discharge: PCP (Leo Marcelo D.O.) - Diagnosis (1) LOGAN (acute kidney injury) Priority: Primary Status: Acute (2) Anemia Priority: Secondary Status: Chronic (3) CKD (chronic kidney disease) stage 3, GFR 30-59 ml/min Priority: Secondary Status: Chronic (4) Diabetes mellitus Priority: Secondary Status: Acute (5) Hypothyroidism Priority: Secondary Status: Acute - Respiratory Orders Smoking Cessation: Smoking cessation has been advised. For more information, call the [place] Tobacco Quit Line at 5-020-YVTT-NOW. - Diet/Nutrition Diet/Nutrition Orders: No Concentrated Sweets - Activity Activity Orders: Walker - Services Needed Following services are medically necessary services: Nursing, Home Health Aide, Physical Therapy, Occupational Therapy - Transfer Medications Home Medications: Carvedilol [Coreg] 25 mg PO BID 06/11/15 [History] Isosorbide MONOnitrate (24 HR) [Imdur] 60 mg PO DAILY 08/11/16 [History] Tiotropium [place] [Spiriva Respimat] 1 puff IH BID 08/11/16 [History] Ascorbic Acid [Vitamin C] 500 mg PO DAILY #30 tablet 11/30/17 [Rx] Ferrous Sulfate 325 mg PO DAILY 30 Days #30 tablet 11/30/17 [Rx] Albuterol Sulfate [Albuterol Inhaler] 2 puff IH Q4HR 03/14/18 [History] Arginine HCl [l-Arginine] 1,000 mg PO BID 03/14/18 [History] Aspirin Enteric Coated [Aspirin EC] 81 mg PO DAILY 03/14/18 [History] Atorvastatin [Lipitor] 40 mg PO HS 03/14/18 [History] Budesonide/Formoterol 80/4.5 [Symbicort 80/4.5] 2 gm IH BIDR 03/14/18 [History] Bumetanide [Bumex] 0.5 mg PO DAILY 03/14/18 [History] Cholecalciferol (D-3) [Vitamin D] 1,000 unit PO DAILY 03/14/18 [History] Cyanocobalamin (B-12) [Vitamin B12] 1,000 mcg PO BID 03/14/18 [History] Doxazosin [Cardura] 1 mg PO HS 03/14/18 [History] Insulin Pump Cartridge [Insulin Pump] 1 device SQ AD 03/14/18 [History] Levothyroxine [Synthroid] 25 mcg PO 0630 03/14/18 [History] Lidocaine Patch [Lidoderm 5% patch] 1 each TP DAILY 03/14/18 [History] Melatonin 10 mg PO HS 03/14/18 [History] Nitroglycerin [Nitrostat] 0.4 mg SL Q5MIN PRN 03/14/18 [History] Paricalcitol [Zemplar] 1 mcg PO DAILY 03/14/18 [History] Sertraline [Zoloft] 200 mg PO DAILY 03/14/18 [History] Insulin DETEMIR [Levemir] 20 unit SQ BID [id number] 03/19/18 [Rx] Insulin LISPRO [HumaLOG] 0 units SQ HS vial 03/19/18 [Rx] Insulin LISPRO [HumaLOG] 0 units SQ TIDAC vial 03/19/18 [Rx] Insulin LISPRO [HumaLOG] 5 units SQ TIDWM vial 03/19/18 [Rx] Losartan Potassium [Cozaar] 100 mg PO DAILY #0 03/19/18 [Rx] OxyCODONE/APAP 10/325 [Percocet 10/325 MG] 1 tab PO Q6HR PRN 3 Days #12 tablet 03/19/18 [Rx] Loratadine [Allergy Relief] 10 mg PO DAILY PRN #0 03/25/18 [Rx] Allergies/Adverse Reactions: 3 Allergy/AdvReac Type Severity Reaction Status Date / Time No Known Allergies Allergy Verified 03/14/18 19:48 Certification: Further, I certify that my clinical findings support that this patient is homebound (i.e. absences from home require considerable and taxing effort and are for medical reasons or gnosticist services or infrequently or short duration when for other reasons) because: Homebound Reason: Leaving home requires considerable and taxing effort due to condition (Walker ambulation, DM 2 ) Attestation: My signature below is to certify that this patient is under my care and that I, or nurse practitioner, or a physician's catering administrative assistant working with me, has a face-to -face encounter with this patient.
[2018-03-25] MEDS: Cyanocobalamin (B-12) 1,000 MCG TABLET PO SCH (08:49)
[2018-03-25] MEDS: Cholecalciferol (D-3) 1,000 UNIT TABLET PO SCH (08:49)
[2018-03-25] MEDS: Isosorbide MONOnitrate (24 HR) 60 MG TAB.ER.24H PO SCH (08:50)
[2018-03-25] MEDS: Bumetanide 1 MG TABLET PO SCH (08:50)
[2018-03-25] MEDS: Insulin LISPRO 300 UNITS/3 ML VIAL SQ SCH ×2 (08:56→08:59)
== END 2018-03-25 09:56 | disposition home health service (06) | DRG 945 ==
LOC: INPPIK 21:12
PROVIDERS: ADMIT Internal Medicine; ATTEND Internal Medicine

== ENCOUNTER 2018-03-29 12:53 | Observation (INO) ==
[2018-03-29] MEDS ORDERED: 0.9 % Sodium Chloride 500 ML IVC ONE (12:59)
[2018-03-29] MEDS ORDERED: Aspirin 81 MG TAB.CHEW PO ONE (12:59)
--- NOTE | 2018-03-29 13:03 | Emergency Department Note ---
Disposition Clinical Impression: Chest pain Disposition: Transfer Short-Term Hosp Condition: Good Instructions: Angina (ED) Referrals: Leo Marcelo DO [Primary Care Provider] - Forms: ED Satisfaction Letter Time of Disposition: 14:06 ( to admit) Chest Pain HPI - General Chief Complaint: ED Chest Pain Stated Complaint: INTERMITTENT CHEST PAIN Time Seen by Provider: 03/29/18 13:01 Source: patient Mode of arrival: EMS Limitations: no limitations Vital Signs Reviewed: Yes Nursing Notes Reviewed: Yes - History of Present Illness HPI Narrative: 73-year-old male presents to the emergency department by EMS with complaint of substernal chest pain. Patient reports that the pain awakened him from sleep this morning, it was approximately 8 AM when he started having the pain. He states that a home healthcare nurse cannot evaluate him, and gave him 2 sublingual nitroglycerin. The suddenly gone nitroglycerin help with the chest pain however at present patient complains of a 5 out of 10 chest pain. He is very nonspecific regarding the pain he is having. Patient has had also issues with frequent falls, and has to be very careful while trying to stand or move. He states that this is been ongoing for over a year. Patient has had previous history of DC, and cardiac stent placement 2. He also states that he only has 1 kidney, and has stage III kidney disease. Sublingual nitroglycerin did ease his pain. Pt complaint: chest pain Duration: intermittent Onset: during rest Pain Location: substernal Severity: moderate Severity scale (1-10): 5 Quality: tightness, heaviness Improves with: nitroglycerin Worsens with: exertion Associated symptoms: Reports: nausea Treatments prior to arrival chest pain: aspirin, nitroglycerin, oxygen - Related Data Home Medications Medication Instructions Recorded Confirmed Carvedilol [Coreg] 25 mg PO BID 06/11/15 03/29/18 Isosorbide MONOnitrate (24 HR) 60 mg PO DAILY 08/11/16 03/29/18 [Imdur] Tiotropium [place] [Spiriva 1 puff IH BID 08/11/16 03/29/18 Respimat] Albuterol Sulfate [Albuterol 2 puff IH Q4HR 03/14/18 03/29/18 Inhaler] Arginine HCl [l-Arginine] 1,000 mg PO BID 03/14/18 03/29/18 Aspirin Enteric Coated [Aspirin EC] 81 mg PO DAILY 03/14/18 03/29/18 Atorvastatin [Lipitor] 40 mg PO HS 03/14/18 03/29/18 Budesonide/Formoterol 80/4.5 2 gm IH BIDR 03/14/18 03/29/18 [Symbicort 80/4.5] Bumetanide [Bumex] 0.5 mg PO DAILY 03/14/18 03/29/18 Cholecalciferol (D-3) [Vitamin D] 50,000 unit PO Q7D 03/14/18 03/29/18 Cyanocobalamin (B-12) [Vitamin B12] 1,000 mcg PO DAILY 03/14/18 03/29/18 Doxazosin [Cardura] 1 mg PO HS 03/14/18 03/29/18 Insulin Pump Cartridge [Insulin 1 device SQ AD 03/14/18 03/29/18 Pump] Levothyroxine [Synthroid] 25 mcg PO 0630 03/14/18 03/29/18 Lidocaine Patch [Lidoderm 5% patch] 1 each TP DAILY 03/14/18 03/29/18 Melatonin 10 mg PO HS 03/14/18 03/29/18 Nitroglycerin [Nitrostat] 0.4 mg SL Q5MIN PRN 03/14/18 03/29/18 Paricalcitol [Zemplar] 1 mcg PO DAILY 03/14/18 03/29/18 Sertraline [Zoloft] 200 mg PO DAILY 03/14/18 03/29/18 Previous Rx's Medication Instructions Recorded Ascorbic Acid [Vitamin C] 500 mg PO DAILY #30 tablet 11/30/17 Ferrous Sulfate 325 mg PO DAILY 30 Days #30 tablet 11/30/17 Insulin DETEMIR [Levemir] 20 unit SQ BID [id number] 03/19/18 Insulin LISPRO [HumaLOG] 0 units SQ HS vial 03/19/18 Insulin LISPRO [HumaLOG] 0 units SQ TIDAC vial 03/19/18 Insulin LISPRO [HumaLOG] 5 units SQ TIDWM vial 03/19/18 Losartan Potassium [Cozaar] 100 mg PO DAILY #0 03/19/18 OxyCODONE/APAP 10/325 [Percocet 1 tab PO Q6HR PRN 3 Days #12 tablet 03/19/18 10/325 MG] Allergies Allergy/AdvReac Type Severity Reaction Status Date / Time No Known Allergies Allergy Verified 03/14/18 19:48 All systems ED: reviewed and negative except as stated. Cardiovascular: Reports: chest pain, dyspnea on exertion Chest Pain PMH - Past Medical History Medical history: Reports: COPD, diabetes, hyperlipidemia, hypertension, myocardial infarction, renal disease, thyroid disease Surgical history: Reports: angioplasty/stent, cancer surgery, carotid endarterectomy, cholecystectomy, prostatectomy Psychiatric history: Reports: depression - Social History Smoking Status: Former smoker Alcohol use: Reports: none Drug use: Reports: none Physical Exam - General Limitations: no limitations General appearance: alert, in no apparent distress - Head Head exam: atraumatic, normocephalic, normal inspection - Eye Eye exam: Present: normal appearance, PERRL, EOMI - Expanded Eye Exam Pupils: Left: reactive - ENT ENT exam: normal exam, normal oropharynx, mucous membranes moist - Expanded ENT Exam External ear exam: Present: normal external inspection Mouth exam: Present: normal external inspection Teeth exam: Present: normal inspection Throat exam: Present: normal inspection - Neck Neck exam: Present: normal inspection, full ROM, trachea midline - Chest Chest inspection: Present: normal inspection, symmetric chest wall rise, other ( Patient has some bruising at his xiphoid process, states this happened when he fell about a week ago.) - Respiratory Respiratory exam: Present: normal lung sounds bilaterally - Cardiovascular Cardiovascular exam: Present: regular rate, normal rhythm, normal heart sounds - Abdominal Exam Abdominal exam: Present: soft, Non-Tender, other (Surgical scar noted to the left upper quadrant where patient has had his nephrectomy). Absent: tenderness , distention, guarding, rebound, rigidity - Extremities Exam Extremities exam: Present: normal inspection, full ROM. Absent: tenderness, pedal edema - Expanded Upper Extremity Exam Shoulder exam: Present: normal inspection, full ROM Arm exam: Present: normal inspection, full ROM Elbow exam: Present: normal inspection, full ROM Forearm/Wrist exam: Present: normal inspection, full ROM Hand exam: Present: normal inspection, full ROM Vascular exam: Normal: capillary refill, radial pulse - Expanded Lower Extremity Exam Hip/Pelvis exam: Present: normal inspection, full ROM Upper leg exam: Present: normal inspection, full ROM Knee exam: Present: normal inspection, full ROM Lower leg exam: Present: normal inspection, full ROM Ankle exam: Present: normal inspection, full ROM Foot/toe exam: Present: normal inspection, full ROM Neurovascular/Tendon exam: Absent: motor deficit, sensory deficit, tendon deficit - Back Exam Back exam: Present: normal inspection, full ROM. Absent: tenderness - Neurological Exam Neurological exam: Present: alert, oriented X3, other (Patient does have unsteady gait, and has to walk slowly and able to get out of the EMS gurney onto the bed.) - Expanded Neurological Exam Patient oriented to: Present: person, place, time Coma Scale Eye Opening: Spontaneous Coma Scale Motor Response: Obeys Commands Coma Scale Verbal Response: Oriented Coma Scale Total: 15 - Psychiatric Psychiatric exam: Present: normal affect, normal mood - Skin Skin exam: Present: warm, dry, intact, normal color Course Course Narrative: On reexamination at approximately 2:05 PM, patient was chest pain-free Vital Signs Temperature 99.0 F 03/29/18 12:54 Pulse Rate 71 03/29/18 12:54 Respiratory Rate 18 03/29/18 12:54 Blood Pressure 156/67 03/29/18 12:54 O2 Sat by Pulse Oximetry 97 03/29/18 12:54 Temperature 99.0 F 03/29/18 12:54 Pulse Rate 71 03/29/18 13:47 Respiratory Rate 18 03/29/18 13:47 Blood Pressure 130/60 03/29/18 13:47 O2 Sat by Pulse Oximetry 97 03/29/18 13:47 Oxygen Delivery Oxygen Delivery Room Air Chest Pain - Differential Diagnosis Likely: unstable angina pectoris, st elevation myocardial infraction, costalchondritis, chest pain - Medical Records Medical records reviewed: Yes I reviewed the patient's medical records. - Lab Data Lab results reviewed: Yes I reviewed the patient's lab results. Result diagrams: 03/29/18 13:20 03/29/18 13:20 Lab Results 03/29/18 03/29/18 03/29/18 Range/Units 13:20 13:20 13:20 WBC 7.1 (4.3-11.1) K/mcL RBC 4.35 (4.19-5.50) M/mcL Hgb 12.6 L (12.9-16.9) g/dL Hct 36.2 L (37.5-50.1) % MCV 83.2 (83.0-100.0) fL MCH 29.0 (28.0-33.3) pg MCHC 34.8 (31.6-35.5) g/dL RDW 13.8 (11.5-14.5) % Plt Count 146 (140-400) K/mcL MPV 9.5 (9.4-12.4) fL Immature Gran % 0.3 (0-4) % Seg Neutrophils % 62.1 % Lymphocytes % 28.8 % Monocytes % 6.6 % Eosinophils % 1.8 % Basophils % 0.4 % Neutrophils # 4.4 (1.6-8.9) K/mcL Lymphocytes # 2.1 (0.6-4.6) K/mcL Monocytes # 0.5 (0.0-1.3) K/mcL Eosinophils # 0.1 (0.0-0.6) K/mcL Basophils # 0.0 (0.0-0.2) K/mcL Sodium 133 L (136-145) mEq/L Potassium 4.4 (3.5-5.1) mEq/L Chloride 102 (98-107) mEq/L Carbon Dioxide 24 (23-29) mEq/L BUN 25 H (8-23) mg/dL Creatinine 1.44 H (0.70-1.30) mg/dL Est GFR ( Amer) 58 L (> 60) Est GFR (Non-Af Amer) 48 L (> 60) BUN/Creatinine Ratio 17 (6-26) Glucose 270 H (70-105) mg/dL Calculated Osmolality 290 (280-300) Calcium 9.9 (8.6-10.3) mg/dL Troponin I < 0.03 (< 0.04) ng/mL B-Natriuretic Peptide 28 (Less than 100) pg/mL - Radiology Data Radiology results reviewed: Yes I reviewed the patient's radiology results. Per radiology chest x-ray shows no acute process - EKG Data EKG results narrative: EKG is normal sinus rhythm with what appears to be T-wave inversion in lead 1 and aVL,also leads v5 and v6, and old Q waves in leads 3 and aVF. These are chronic changes. EKG shows normal: sinus rhythm Rate: normal Rhythm: NSR [place]/QRS: normal
[2018-03-29 13:28] LABS: Basophils % 0.4 %; Eosinophils # 0.1 K/mcL (0.0-0.6); Eosinophils % 1.8 %; Hematocrit 36.2 % (37.5-50.1); Hemoglobin 12.6 g/dL (12.9-16.9); Immature Granulocytes % 0.3 % (0-4); Lymphocytes # 2.1 K/mcL (0.6-4.6); Lymphocytes % 28.8 %; Mean Corpuscular HGB Conc 34.8 g/dL (31.6-35.5); Mean Corpuscular Volume 83.2 fL (83.0-100.0); Mean Platelet Volume 9.5 fL (9.4-12.4); Monocytes # 0.5 K/mcL (0.0-1.3); Monocytes % 6.6 %; Neutrophils # 4.4 K/mcL (1.6-8.9); Platelet Count 146 K/mcL (140-400); Red Blood Count 4.35 M/mcL (4.19-5.50); Red Cell Distribution Width 13.8 % (11.5-14.5); Segmented Neutrophils % 62.1 %
[2018-03-29 13:37] LABS: INR 1.1; Prothrombin Time 11.7 Seconds (9.4-12.1)
[2018-03-29 13:40] LABS: Activated Partial Thrombo Time 34.4 Seconds (26.0-36.0)
[2018-03-29 13:49] LABS: BUN/Creatinine Ratio 17 (6-26); Blood Urea Nitrogen 25 mg/dL (8-23); Calcium 9.9 mg/dL (8.6-10.3); Carbon Dioxide 24 mEq/L (23-29); Chloride 102 mEq/L (98-107); Glucose 270 mg/dL (70-105); Osmolality,Calculated 290 (280-300); Potassium 4.4 mEq/L (3.5-5.1); Sodium 133 mEq/L (136-145); eGFR For African Americans 58 (> 60); eGFR For Non-African Americans 48 (> 60)
[2018-03-29 13:54] LABS: Troponin I < 0.03 ng/mL (< 0.04)
[2018-03-29] MEDS ORDERED: *HR* OxyCODONE/APAP 10/325 TABLET PO PRN (15:32)
--- NOTE | 2018-03-29 17:45 | Electrocardiograph Report ---
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
[2018-03-29] MEDS: Budesonide/Formoterol 80/4.5 MDI IH SCH (20:12)
[2018-03-29] MEDS ORDERED: Melatonin 3 MG TABLET PO SCH (21:00)
[2018-03-29] MEDS ORDERED: ARGININE HCL 1000 MG PO SCH (21:00)
[2018-03-29] MEDS ORDERED: Insulin LISPRO 300 UNITS/3 ML VIAL SQ SCH (21:00)
[2018-03-29] MEDS ORDERED: (Tiotropium Bromide [Spiriva Respimat] 1 PUFF) IH SCH (22:00)
[2018-03-30] MEDS ORDERED: Levothyroxine 25 MCG TABLET PO SCH (06:30)
[2018-03-30] MEDS ORDERED: Ascorbic Acid 500 MG TABLET PO SCH (07:30)
[2018-03-30] MEDS ORDERED: Bumetanide 1 MG TABLET PO SCH (09:00)
[2018-03-30] MEDS ORDERED: Isosorbide MONOnitrate (24 HR) 60 MG TAB.ER.24H PO SCH (09:00)
[2018-03-30] MEDS ORDERED: Aspirin Enteric Coated 81 MG Tablet PO SCH (09:00)
[2018-03-30] MEDS ORDERED: Cyanocobalamin (B-12) 1,000 MCG TABLET PO SCH (09:00)
[2018-03-30] MEDS ORDERED: LIDOCAINE TP SCH (09:00)
[2018-03-30] MEDS ORDERED: Cholecalciferol (D-3) 1,000 UNIT TABLET PO SCH (09:00)
[2018-03-30] MEDS ORDERED: Tiotropium 18 MCG inhalation IH SCH (10:00)
[2018-03-30] MEDS: Budesonide/Formoterol 80/4.5 MDI IH SCH (10:46)
--- NOTE | 2018-03-30 10:46 | Internal Med History&Physical ---
Date of Encounter: 03/30/18 Time of Encounter: 10:15 Assessment and Plan (1) Chest pain Current visit: Yes Status: Acute Doubt myocardial ischemia from history and physical. Will order repeat troponin now. Qualifiers: Chest pain type: unspecified Qualified Code(s): R07.9 - Chest pain, unspecified Internal Medicine - H&P: HPI Chief complaint: Chest discomfort Admitted From: Emergency Dept Plans for Post Hospital Care: Home History of present illness: Mr. Torres is a 73 year old male who came to emergency room stating he was awakened approximately 0800 with discomfort in his chest. He describes it as a burning sensation similar to previous GERD. He took Rolaids without improvement. After home health nursing staff arrived for regular visit he took 2 sublingual nitroglycerin pills without relief. The squad was called and he was brought to emergency room. He was admitted to [facility] for ongoing care needs. He states he has no residual discomfort at the present time. He had a similar previous discomfort 2 days ago but did respond to Rolaids. Cardiovascular history is pertinent for hypertension. He has known left internal carotid stenosis with carotid Doppler study 06/29/2017 showing 60-79% left ICA stenosis. This was treated nonsurgically. He has an infrarenal aortic aneurysm measuring 4.5 x 4.1 cm. A Regadenoson stress test 02/17/2016 showed no perfusion imaging and nondiagnostic EKG changes indicating ischemia. He has known ASHD with history of multiple heart caths. His most recent cath was 2012 and he reports 2 stents were placed. He has known ASPVD and has at 3 stents in his legs. An echocardiogram 03/15/2018 showed normal LV systolic function with overall suboptimal visualization. There was mild LV diastolic dysfunction reported although E/A ratio was 1.2. No significant valvular dysfunction was noted. There was increased thickness of the interventricular septum and posterior wall at 1.50 cm each. He denies DVT or pulmonary embolus. Past Med Surg Social Fam HX - Past Medical History Medical history: COPD, diabetes, hyperlipidemia, hypertension, myocardial infarction, renal disease, thyroid disease Additional medical history: sleep apnea, chronic back pain, AAA Psychiatric history: depression - Past Surgical History Surgical History: angioplasty/stent, cancer surgery, carotid endarterectomy, cholecystectomy, prostatectomy Additional surgical history: KIDNEY REMOVAL, FEMORAL STENT, PROSTATECTOMY. - Social History Smoking Status: Former smoker Smokeless Tobacco Status: No Alcohol use: none Drug use: none - Family History Mother Living Status: Hx Family Cardiac Disorders: Yes Hx Family Respiratory Disorders: Yes Hx Family Cancer: Yes Internal Medicine - H&P: Meds Carvedilol [Coreg] 25 mg PO BID 06/11/15 [History] Isosorbide MONOnitrate (24 HR) [Imdur] 60 mg PO DAILY 08/11/16 [History] Tiotropium [place] [Spiriva Respimat] 1 puff IH BID 08/11/16 [History] Ascorbic Acid [Vitamin C] 500 mg PO DAILY #30 tablet 11/30/17 [Rx] Ferrous Sulfate 325 mg PO DAILY 30 Days #30 tablet 11/30/17 [Rx] Albuterol Sulfate [Albuterol Inhaler] 2 puff IH Q4HR 03/14/18 [History] Arginine HCl [l-Arginine] 1,000 mg PO BID 03/14/18 [History] Aspirin Enteric Coated [Aspirin EC] 81 mg PO DAILY 03/14/18 [History] Atorvastatin [Lipitor] 40 mg PO HS 03/14/18 [History] Budesonide/Formoterol 80/4.5 [Symbicort 80/4.5] 2 gm IH BIDR 03/14/18 [History] Bumetanide [Bumex] 0.5 mg PO DAILY 03/14/18 [History] Cholecalciferol (D-3) [Vitamin D] 50,000 unit PO Q7D 03/14/18 [History] Cyanocobalamin (B-12) [Vitamin B12] 1,000 mcg PO DAILY 03/14/18 [History] Doxazosin [Cardura] 1 mg PO HS 03/14/18 [History] Insulin Pump Cartridge [Insulin Pump] 1 device SQ AD 03/14/18 [History] Levothyroxine [Synthroid] 25 mcg PO 0630 03/14/18 [History] Lidocaine Patch [Lidoderm 5% patch] 1 each TP DAILY 03/14/18 [History] Melatonin 10 mg PO HS 03/14/18 [History] Nitroglycerin [Nitrostat] 0.4 mg SL Q5MIN PRN 03/14/18 [History] Paricalcitol [Zemplar] 1 mcg PO DAILY 03/14/18 [History] Sertraline [Zoloft] 200 mg PO DAILY 03/14/18 [History] Insulin DETEMIR [Levemir] 20 unit SQ BID [id number] 03/19/18 [Rx] Insulin LISPRO [HumaLOG] 0 units SQ TIDAC vial 03/19/18 [Rx] Insulin LISPRO [HumaLOG] 5 units SQ TIDWM vial 03/19/18 [Rx] Losartan Potassium [Cozaar] 100 mg PO DAILY #0 03/19/18 [Rx] OxyCODONE/APAP 10/325 [Percocet 10/325 MG] 1 tab PO Q6HR PRN 3 Days #12 tablet 03/19/18 [Rx] 3 Allergy/AdvReac Type Severity Reaction Status Date / Time No Known Allergies Allergy Verified 03/14/18 19:48 All Systems PM: A 10-system review of systems was performed and is negative for pertinent findings except as documented above in the HPI. Review of systems: Review of systems from his recent [facility] swing bed stay were reviewed and revised as below. Gen.: His weight has been stable proximal knee 147 kg since November 2017 [facility] hospitalization. Cardiovascular: As per history of present illness Respiratory: He smoked from age [age] up to 3-1/2 packs per day. He had pulmonary function tests 01/29/2016 which showed FEV1/FVC of 74%. The MVV was 72%. RV was elevated at 148%. DLCO was decreased at 79%.. He has a diagnosis of TATIANNA and uses BiPAP at home. GI: He has had cholecystectomy. He has GERD. He denies disorders of his liver or exocrine pancreas : He had suprapubic prostatectomy with hernia repair several years ago. He has chronic kidney disease stage III and follows with a [facility] histological illustrator. He has had left nephrectomy in the past for renal cell cancer. Neurologic: He denies large decision strokes or seizures. Endocrine: He was diagnosed with DM 2 approximately 1977. He has hyperlipidemia but denies thyroid disease Hematology/oncology: He has had prostate CA and left renal cell cancer as per above. He has been treated surgically and he is presumed cancer free. He has anemia with anemia testing 03/14/2018 showing iron 26, transferrin saturation 8% , transferrin 227, ferritin 264, B12 653, and folate 17.1. Psychiatric: He has anxiety and depression. He denies other mental health issues. Musculoskeletal: He has DJD. He had discectomy with spinal fusion surgery. - Constitutional Vitals: Temp Pulse Resp BP Pulse Ox 97.5 F L 57 16 177/77 97 03/30/18 06:28 03/30/18 06:28 03/30/18 06:28 03/30/18 06:28 03/30/18 08:31 Exam: Gen.: He is a well-developed well-nourished male resting comfortable in bed who appears in no acute distress at present time HEENT: Head is atraumatic and normocephalic. Eyes: EOMI. There is no scleral icterus. Mouth: Mucosa is moist. Neck: Supple and nontender. There is no thyromegaly or adenopathy noted. Heart: Regular without murmurs gallops or ectopics Lungs: No wheezes or crackles are heard. Abdomen: Soft and nontender. No masses or guarding are noted. Extremities: There is no cyanosis edema or clubbing noted. Dorsalis pedis and posttibial pulses are 1-2 over 2 bilaterally. Neurologic: Mental status: He is talkative and a good historian. Cranial nerves : Smile is symmetric. Forehead wrinkles bilaterally. Tongue protrudes midline. EOMI. Motor: There is no pronator drift. Cerebellar: Finger to nose is intact bilaterally. Skin: Warm and dry Internal Med - H&P Results - Labs CBC & Chem 7: 03/29/18 13:20 03/29/18 13:20 - VTE Documentation of Mechanical Device: Graduated compression elastic hosiery
[2018-03-30] MEDS ORDERED: INSULIN PUMP SQ SCH (11:15)
[2018-03-30 11:54] VITALS: BP 118/69
--- NOTE | 2018-03-30 12:10 | Discharge Summary ---
Date of Encounter: 03/30/18 Time of Encounter: 10:15 - Discharge Diagnosis (1) Chest pain Priority: Primary Status: Resolved Qualifiers: Chest pain type: unspecified Qualified Code(s): R07.9 - Chest pain, unspecified Hospital course: Mr. Torres is a 73 year old male who came to emergency room stating he was awakened approximately 0800 with discomfort in his chest. He describes it as a burning sensation similar to previous GERD. He took Rolaids without improvement. After home health nursing staff arrived for regular visit he took 2 sublingual nitroglycerin pills without relief. The squad was called and he was brought to emergency room. He was admitted to [facility] for ongoing care needs. Initial orders were written by the emergency room physician. I saw him on March 30 and performed a history and physical. When I saw him I did not think pain was likely myocardial ischemic origin. I ordered repeat troponin which showed no evidence of myocardial damage. I felt pain might be of GERD origin. He had no further discomfort and felt stable for discharge home. He will follow with his PCP within 1 week. - Time Spent with Patient Total time spent providing and/or coordinating discharge services: - Discharge Medications Home Medications: Carvedilol [Coreg] 25 mg PO BID 06/11/15 [History] Isosorbide MONOnitrate (24 HR) [Imdur] 60 mg PO DAILY 08/11/16 [History] Tiotropium [place] [Spiriva Respimat] 1 puff IH BID 08/11/16 [History] Ascorbic Acid [Vitamin C] 500 mg PO DAILY #30 tablet 11/30/17 [Rx] Ferrous Sulfate 325 mg PO DAILY 30 Days #30 tablet 11/30/17 [Rx] Albuterol Sulfate [Albuterol Inhaler] 2 puff IH Q4HR 03/14/18 [History] Arginine HCl [l-Arginine] 1,000 mg PO BID 03/14/18 [History] Aspirin Enteric Coated [Aspirin EC] 81 mg PO DAILY 03/14/18 [History] Atorvastatin [Lipitor] 40 mg PO HS 03/14/18 [History] Budesonide/Formoterol 80/4.5 [Symbicort 80/4.5] 2 gm IH BIDR 03/14/18 [History] Bumetanide [Bumex] 0.5 mg PO DAILY 03/14/18 [History] Cholecalciferol (D-3) [Vitamin D] 50,000 unit PO Q7D 03/14/18 [History] Cyanocobalamin (B-12) [Vitamin B12] 1,000 mcg PO DAILY 03/14/18 [History] Doxazosin [Cardura] 1 mg PO HS 03/14/18 [History] Insulin Pump Cartridge [Insulin Pump] 1 device SQ AD 03/14/18 [History] Levothyroxine [Synthroid] 25 mcg PO 0630 03/14/18 [History] Lidocaine Patch [Lidoderm 5% patch] 1 each TP DAILY 03/14/18 [History] Melatonin 10 mg PO HS 03/14/18 [History] Nitroglycerin [Nitrostat] 0.4 mg SL Q5MIN PRN 03/14/18 [History] Paricalcitol [Zemplar] 1 mcg PO DAILY 03/14/18 [History] Sertraline [Zoloft] 200 mg PO DAILY 03/14/18 [History] Insulin DETEMIR [Levemir] 20 unit SQ BID [id number] 03/19/18 [Rx] Insulin LISPRO [HumaLOG] 0 units SQ TIDAC vial 03/19/18 [Rx] Insulin LISPRO [HumaLOG] 5 units SQ TIDWM vial 03/19/18 [Rx] Losartan Potassium [Cozaar] 100 mg PO DAILY #0 03/19/18 [Rx] OxyCODONE/APAP 10/325 [Percocet 10/325 MG] 1 tab PO Q6HR PRN 3 Days #12 tablet 03/19/18 [Rx] Allergies/Adverse Reactions: 3 Allergy/AdvReac Type Severity Reaction Status Date / Time No Known Allergies Allergy Verified 03/14/18 19:48 Date of admission: 03/29/18 15:15 Primary care physician: Leo Marcelo DO Consults: 03/29/18 16:00 Consult to Foundation Relations Manager [CONS] Routine Reason for SW Consult: discharged with HH - Constitutional Vitals: Temp Pulse Resp BP Pulse Ox 98.2 F 61 18 118/69 99 03/30/18 11:51 03/30/18 11:51 03/30/18 11:51 03/30/18 11:51 03/30/18 11:51 - Patient Status Disposition: Home Health Service Condition: Good - Discharge Instructions Follow Up With: Leo Marcelo DO [Primary Care Provider] - 1 week - Diet and Activity Activity: resume usual activities as tolerated Diet: advance to your usual diet - VTE Documentation of Mechanical Device: Graduated compression elastic hosiery
--- NOTE | 2018-03-30 12:49 | Physician Discharge Referral ---
Home Health/Hosp Referral Info Transfer to: Home Health Attending Provider: [place] Provider in Charge Post Discharge: PCP (Leo Marcelo D.O.) - Diagnosis (1) Chest pain Priority: Primary Status: Resolved - Respiratory Orders Smoking Cessation: Smoking cessation has been advised. For more information, call the [place] Tobacco Quit Line at 7-770-VPOJ-NOW. - Activity Activity Orders: [place] - Services Needed Following services are medically necessary services: Nursing, Home Health Aide, Physical Therapy, Occupational Therapy - Transfer Medications Home Medications: Carvedilol [Coreg] 25 mg PO BID 06/11/15 [History] Isosorbide MONOnitrate (24 HR) [Imdur] 60 mg PO DAILY 08/11/16 [History] Tiotropium [place] [Spiriva Respimat] 1 puff IH BID 08/11/16 [History] Ascorbic Acid [Vitamin C] 500 mg PO DAILY #30 tablet 11/30/17 [Rx] Ferrous Sulfate 325 mg PO DAILY 30 Days #30 tablet 11/30/17 [Rx] Albuterol Sulfate [Albuterol Inhaler] 2 puff IH Q4HR 03/14/18 [History] Arginine HCl [l-Arginine] 1,000 mg PO BID 03/14/18 [History] Aspirin Enteric Coated [Aspirin EC] 81 mg PO DAILY 03/14/18 [History] Atorvastatin [Lipitor] 40 mg PO HS 03/14/18 [History] Budesonide/Formoterol 80/4.5 [Symbicort 80/4.5] 2 gm IH BIDR 03/14/18 [History] Bumetanide [Bumex] 0.5 mg PO DAILY 03/14/18 [History] Cholecalciferol (D-3) [Vitamin D] 50,000 unit PO Q7D 03/14/18 [History] Cyanocobalamin (B-12) [Vitamin B12] 1,000 mcg PO DAILY 03/14/18 [History] Doxazosin [Cardura] 1 mg PO HS 03/14/18 [History] Insulin Pump Cartridge [Insulin Pump] 1 device SQ AD 03/14/18 [History] Levothyroxine [Synthroid] 25 mcg PO 0630 03/14/18 [History] Lidocaine Patch [Lidoderm 5% patch] 1 each TP DAILY 03/14/18 [History] Melatonin 10 mg PO HS 03/14/18 [History] Nitroglycerin [Nitrostat] 0.4 mg SL Q5MIN PRN 03/14/18 [History] Paricalcitol [Zemplar] 1 mcg PO DAILY 03/14/18 [History] Sertraline [Zoloft] 200 mg PO DAILY 03/14/18 [History] Insulin DETEMIR [Levemir] 20 unit SQ BID [id number] 03/19/18 [Rx] Insulin LISPRO [HumaLOG] 0 units SQ TIDAC vial 03/19/18 [Rx] Insulin LISPRO [HumaLOG] 5 units SQ TIDWM vial 03/19/18 [Rx] Losartan Potassium [Cozaar] 100 mg PO DAILY #0 03/19/18 [Rx] OxyCODONE/APAP 10/325 [Percocet 10/325 MG] 1 tab PO Q6HR PRN 3 Days #12 tablet 03/19/18 [Rx] Allergies/Adverse Reactions: 3 Allergy/AdvReac Type Severity Reaction Status Date / Time No Known Allergies Allergy Verified 03/14/18 19:48 Certification: Further, I certify that my clinical findings support that this patient is homebound (i.e. absences from home require considerable and taxing effort and are for medical reasons or scientology services or infrequently or short duration when for other reasons) because: Homebound Reason: Leaving home requires considerable and taxing effort due to condition (Walker ambulation, dyspnea on exertion, imbalance) Attestation: My signature below is to certify that this patient is under my care and that I, or nurse practitioner, or a physician's special events assistant working with me, has a face-to -face encounter with this patient.
== END 2018-03-30 13:08 | disposition home health service (06) ==
LOC: EMEROOPIK 12:53 → INTOOBSV 15:15 → INPPIK 15:15
PROVIDERS: ADMIT Internal Medicine; ATTEND Internal Medicine